=== PATIENT | male | born 2000 | race Caucasian/White ===

== ENCOUNTER 2021-04-11 22:26 | Emergency (ER) | payer SELFPAY ==
[2021-04-13 22:08] LABS: CHLAMYDIA TRACHOMATIS, NAA Negative (Negative); NEISSERIA GONORRHOEAE, NAA Negative (Negative)
== END 2021-04-12 01:30 | disposition home or self-care (01) ==
LOC: ER1 22:26
PROVIDERS: Physician Assistant Medical
DX: N34.2 Other urethritis (principal); N48.89 Other specified disorders of penis
CPT/HCPCS: 81001; 96372; 99283; J0696